=== PATIENT | male | born 1950 | race Caucasian/White ===

== ENCOUNTER 2023-02-07 09:24 | Outpatient (CLI) | payer MEDICARE, OTHER, SELFPAY | END 2023-02-07 09:25 | disposition home or self-care (01) | PROVIDERS: PCP Internal Medicine; Visit Provider Internal Medicine | DX: Z13.6 Encounter for screening for cardiovascular disorders (principal); Z12.5 Encounter for screening for malignant neoplasm of prostate | CPT/HCPCS: 80053; 80061; 84153 ==

== ENCOUNTER 2023-05-23 11:30 | Outpatient (RCR) | payer MEDICARE, OTHER, SELFPAY ==
--- NOTE | 2023-03-22 17:49 | PT.OPEX ---
PT [place] [facility] PT [facility] Out[facility] Eval Start: 03/22/23 15:44 Freq: Status: Active Protocol: Document 03/22/23 17:24 LELAND (Rec: 03/22/23 17:46 LELAND [id number]) E-signed By Hamlet Shah PT Physical Therapy Outpatient Evaluation Insurance Information Insurance Name Medicare B,[employer] Medical Diagnosis Back pain Treating Diagnosis Right shoulder pain and stiffness Left knee pain and stiffness/ swelling Bilateral leg and arm pain Referring MD Foster Subjective Subjective Pt. comes to therapy today with complaints of bilateral leg pain, bilateral arm pain, right shoulder pain, left knee pain, and general stiffness and difficulty walking. He has a history of neck and lumbar laminectomy surgeries and right LILI. 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 He has trouble with walking, climbing steps, and reaching/lifting ADL's. His goal of therapy is to improve walking ability, reduce pain, and improve right arm function . Pain Comments 2 Date of Last Physician Visit 02/18/23 Current Work Status Retired Preferred Name Alex Objective Range of Motion Right shoulder: mild/moderate limitations in end range motion due to joint stiffness Left shoulder ROM is WNL right knee ROM is WNL left knee ROM is mildly limited at end range flexion and extension Bilateral active ankle DF is 5 degrees Strength Bilateral quad, gluteal, and right cuff weakness Swelling mild/mod left knee Balance & Gait Pt. ambulates with shortened stride and stiff gait with decreased hip and knee flexion . Posture forward head with increased kyphosis posture Assessment Assessment/Impression Objectively, pt. demonstrates; slowed gait with shortened stride and stiff ambulation pattern with decreased hip and knee flexion; decreased right shoulder end range motion due to joint stiffness; decreased end range left knee motion due to OA changes with mild/ mod swelling/thickness noted; core deconditioning; negative slump and SLR testing; and quad,gluteal and right cuff weakness. His leg pain symptoms appear to be coming from his knees versus his lumbar spine testing. Primary Functional Limitations walking, steps, reaching, lifting Plan of Care Rehabilitation Potential Good Physical Therapy Goals 1. Pt. will be independent with HEP for self maintenance in 8 weeks. 2. Pt. will demonstrate improved mobility and core strength in 8 weeks. 3. Pt. will demonstrate improved gait pattern in 8 weeks. 4. Pt. will be able to lift arm overhead for ADL's without difficulty in 8 weeks. Coordination/Communication With Referral Source Treatment Plan/Direct Interventions Gait Training,Joint Mobilization,Manual Therapy, Self-Care/Home Management, Therapeutic Exercises Frequency/Duration weekly to every other week for 8-12 weeks. Patient Will Be Discharged From Therapy Independent w/HEP, Independently Progressing Evaluation Billing Complexity Moderate Certification Information Initial Certification Date 03/22/23 Ending Certification Date 06/15/23 Provider Signature Shows Agreement With POC & Medical Necessity Physician Signature & Date Requested Please Sign/Date Here Physician Comment/Change : Physician NPI Number #
== END 2023-07-05 14:04 | disposition home or self-care (01) ==
PROVIDERS: PCP Internal Medicine; Visit Provider Internal Medicine
DX: M54.9 Dorsalgia, unspecified (principal); Z51.89 Encounter for other specified aftercare
CPT/HCPCS: 97110; 97140; 97162

== ENCOUNTER 2023-09-15 10:04 | Emergency (ER) | payer MEDICARE, OTHER, SELFPAY ==
[2023-09-15 10:05] VITALS: BP 146/89; PULSE 87; RESP 16; O2SAT 98
[2023-09-15 10:13] VITALS: BP 146/89; PULSE 78; RESP 18; TEMP 36.6; O2SAT 100; BMI 28.9
[2023-09-15 10:30] VITALS: BP 128/79; PULSE 87; RESP 16; O2SAT 98
--- NOTE | 2023-09-15 10:54 | ED.GENADULT ---
HPI - General Adult General Chief complaint: Post Op Complication Stated complaint: Bleeding post knee replacement Time Seen by Provider: 09/15/23 10:28 History of Present Illness HPI narrative: 73-year-old male, postop day 3 status post a left TKA, presenting today with bleeding from the incision that was made for the drain during the procedure. Patient states that he went to change the bandage today and there was blood oozing out from the area so he came in for evaluation. He states he has been doing well rehab has been going well, pain is well controlled. He denies any systemic symptoms. Related Data Home Medications Medication Instructions Recorded Confirmed amoxicillin 500 mg capsule 2,000 mg ONCE 09/15/23 ascorbic acid (vitamin C) 1,000 mg 1 g PO DAILY 09/15/23 09/15/23 capsule aspirin 81 mg capsule 81 mg PO DAILY 09/15/23 09/15/23 celecoxib 100 mg capsule 100 mg PO BID 09/15/23 09/15/23 cholecalciferol (vitamin D3) 50 50 mcg PO DAILY 09/15/23 09/15/23 mcg (2,000 unit) capsule ferrous sulfate 325 mg (65 mg 325 mg PO DAILY 09/15/23 09/15/23 iron) tablet glucosamine 375 re-adodhlgnd-hos tab PO 09/15/23 no1 500 mg-C 15 mg-leonardo 0.5 mg tablet (Zlrronzcqux-Imnrvurepmr-SQO Complex) omega 5-uys-ksk-fish oil 60 mg-90 1 cap PO DAILY 09/15/23 09/15/23 mg-500 mg capsule (Fish Oil) oxycodone 5 mg tablet 5 - 10 mg PO Q4H PRN 09/15/23 09/15/23 sennosides 8.6 mg capsule (senna) 8.6 - 25.8 mg PO BID 09/15/23 09/15/23 vitamin B complex 1 cap PO DAILY 09/15/23 09/15/23 Allergies Allergy/AdvReac Type Severity Reaction Status Date / Time No Known Drug Allergies Allergy Verified 09/15/23 10:13 Review of Systems Status of ROS: Reports: 6 or more systems reviewed and unremarkable except as noted in History and below [facility] Medical History Laceration of index finger (07/10/12) ?S61.218A - Laceration without foreign body of other finger without damage to nail, initial encounter (ICD-10) Abrasion or friction burn of groin with infection Joint pain ?M25.50 - Pain in unspecified joint (ICD-10) Back pain ?M54.9 - Dorsalgia, unspecified (ICD-10) Surgical History History of carpal tunnel surgery of right wrist (2018) ?Z98.890 - Other specified postprocedural states (ICD-10) History of carpal tunnel surgery of left wrist (08/2019) ?Z98.890 - Other specified postprocedural states (ICD-10) Status post hemilaminotomy (05/18/17) ?Z98.890 - Other specified postprocedural states (ICD-10) 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) ?Z96.641 - Presence of right artificial hip joint (ICD-10) History of laminectomy (05/18/16) ?Z98.890 - Other specified postprocedural states (ICD-10) History of colonoscopy with polypectomy ?Z98.890 - Other specified postprocedural states (ICD-10) ?Z86.010 - Personal history of colonic polyps (ICD-10) Family History Father Alcohol dependence Asthma Sister Alcohol dependence Cancer Breast cancer Mother Coronary artery disease Social History Narrative: -Ofelia former pipe What is your current living situation?: I presently have a place to live Problems where you live: no known problems In the past 12 months, utilities in danger of being shut off: no In past 12 months, lack of transportation kept you from medical appts, meetings, work, or getting things needed for daily living: no In the past 12 mos, have been you worried that your food would run out before you had money to buy more?: never true In the past 12 mos, the food you bought just didn't last and you didn't have money to buy more?: never true Smoking Status: Former smoker What tobacco products do you use: pipe Do you use any of these nicotine containing products: None Second hand tobacco smoke exposure: No How often does anyone, including family, friends and others, physically hurt you: never How often does anyone, including family, friends and others, insult or talk down to you: never How often does anyone, including family, friends and others, threaten you with harm: never How often does anyone, including family, friends and others, scream or curse at you: never Little interest or pleasure in doing things: not at all Feeling down, depressed, or hopeless: not at all Exam Narrative: Exam Narrative: Well-nourished well-developed patient in no acute distress. Alert and oriented. Answers questions appropriately. Mood and affect are appropriate. Thoughts are goal oriented and rational. No tangential or magical thinking noted. Patient speaks in full sentences without needing to catch his breath. HEENT: Normocephalic atraumatic. Pupils are equally round reactive to light. Extraocular muscles are intact. Conjunctivae are moist without any icterus noted. Moist mucous membranes. Skin: Well perfused. Extremities: Left lower extremity has swelling and ecchymosis as expected postoperatively. The main incision is bandaged. He has a bandage on the lateral knee, that has been present since surgery, which was removed today the bandages completely soaked and blood dripped out from the gauze when the bandage was removed. He has a tiny incision that is not bleeding. No evidence of infection. Const: Vital Signs, click to edit/add: Vital Signs - 24 hr 09/15/23 10:13 Temperature 97.9 F Pulse Rate [Pulse Oximeter] 78 Respiratory Rate 18 Blood Pressure [Ri ght Upper Arm] 146/89 H Pulse Oximetry 100 Oxygen Delivery Me thod Room Air Course Course ED Course: The area was cleaned with wound cleanser and the small drop of antibiotic ointment was placed over the incision. As pressure dressing with gauze and tape was made placed over the incision. Vital Signs Vital signs: Initial Vital Signs Temperature 97.9 F 09/15/23 10:13 Temperature Source Temporal Artery Scan 09/15/23 10:13 Pulse Rate 78 09/15/23 10:13 Respiratory Rate 18 09/15/23 10:13 Blood Pressure 146/89 H 09/15/23 10:13 Blood Pressure Mean 108 H 09/15/23 10:13 Blood Pressure Position Semi-Fowlers 09/15/23 10:13 Pulse Oximetry 100 09/15/23 10:13 Oxygen Delivery Method Room Air 09/15/23 10:13 Vital Signs Temperature 97.9 F 09/15/23 10:13 Pulse Rate 78 09/15/23 10:13 Respiratory Rate 18 09/15/23 10:13 Blood Pressure 146/89 H 09/15/23 10:13 Pulse Oximetry 100 09/15/23 10:13 Oxygen Delivery Method Room Air 09/15/23 10:13 Temperature 97.9 F 09/15/23 10:13 Pulse Rate 78 09/15/23 10:13 Respiratory Rate 18 09/15/23 10:13 Blood Pressure 146/89 H 09/15/23 10:13 Pulse Oximetry 100 09/15/23 10:13 Oxygen Delivery Method Room Air 09/15/23 10:13 Medical Decision Making MDM Narrative Medical decision making narrative: Postop bleeding from a small lateral incision of the knee. I think most of the blood was likely from several days ago that remain in the bandage that dripped out, the incision itself was not actively bleeding today. We discussed wound hygiene and follow up as instructed. Of note, patient was instructed to follow up with primary care, would like to skip that appointment since they were seen today. I think that is acceptable. Discharge Plan Discharge Clinical Impression: Postoperative bleeding from incision Patient Disposition: Home, Self-Care Condition: Stable Additional Instructions: Follow-up as directed. Okay to skip the 1st primary care follow-up as you were seen today. Prescriptions: No Action amoxicillin 500 mg capsule 2,000 mg ONCE Rx Instructions: 1 HR PRIOR TO APPT ascorbic acid (vitamin C) 1,000 mg capsule 1 g PO DAILY vitamin B complex Capsule 1 cap PO DAILY ferrous sulfate 325 mg (65 mg iron) tablet 325 mg PO DAILY aspirin 81 mg capsule 81 mg PO DAILY celecoxib 100 mg capsule 100 mg PO BID oxycodone 5 mg tablet 5 - 10 mg PO Q4H PRN senna 8.6 mg capsule 8.6 - 25.8 mg PO BID cholecalciferol (vitamin D3) 50 mcg (2,000 unit) capsule 50 mcg PO DAILY omega 5-dxd-brq-fish oil [Fish Oil] 60-90-500 mg capsule 1 cap PO DAILY Idmtrcufyun-Dddua-TQI Complex 201-390-45-0.5 mg tablet PO Follow Up/Referrals: John Foster MD [Primary Care Provider] - Stand Alone Forms: [employer] Info Instructions
[2023-09-15 11:00] VITALS: BP 129/86; PULSE 77; RESP 16; O2SAT 98
--- OUTSIDE RECORDS SUMMARY | 2023-09-15 11:04 | XMS_ITS | Continuity of Care Document ---
Author Name Unknown Organization [facility] Address [address] [place] [address] Phone Care Team Providers Care Balance Wheel Arm Burnisher Name Role Phone Trevor Odonnell MD Unavailable Unavailable Allergies, Adverse Reactions, Alerts Substance Reaction Status Criticality No Known Allergies Active No Inform ation Procedures Procedure Date Office/Outpatient Visit,Est, Mod 2015 Office/Outpatient Visit,New, Mod 2015 X-Ray Exam Of Neck Spine, 4+ Views Advance Directives Directive Yes / No Effective Date File Name No Information Encounters Encounter Description Practice Location Reason(s) For Visit Diagnoses Date Provider Providers Copied on Encounter [facility], [address], [place], [place], [id number], [place] tel:[phone] [facility] - [facility] No Information Blas Murray. [facility], [address] [place] [address] [address], [place], [place], [id number], [place]. tel:[phone] Office/Outpat ient Visit,Est, Mod [facility], [address], [place], [place], [id number], [place] tel:[phone] [facility] - [facility] Spinal stenosis, cervical region Blas Murray. [facility], [address], [place], [place], [id number], [place]. tel:[phone] Referring Provider: John Foster, [facility] [address], [address]. tel:[phone] Office/Outpat ient Visit,New, Mod [facility], [address], [place], [id number], [place] tel:[phone] [facility] Other spondylosis with myelopathy, cervical regionSpondylo listhesis, cervical regionSpinal stenosis, cervical region Hung Kooence. [facility], [address] [place] [address], [address], [place], [id number], [place]. tel:[phone] Referring Provider: John Foster, [facility] [address] [place] [address], [address]. tel:[phone] Family History Family Member Type Diagnosis Age At Onset No Information Payers Payer name Insurance type Covered libertarian ID Authoriza tialexander(s) [employer] Kerry [id number] Social History Type Description Quantity Date Captured Comments Alcohol Use Details Unknown Caffeine Use Details Unknown Tobacco Use Status Smoking Status No Information Sex Male Chief Complaint And Reason For Visit No Information Reason For Referral Reason For Referral No Information Plan Of Treatment Date Type Action Status Future Order: Radiology Order Ce rvical 4 Or 5 Views (CMIN4), Ordered on: Ordered History Of Present Illness Encounter Date Complaint History Of Prese nt Illness No Information Functional Status Date Functional Assessmen t No Information Instructions Date Instruction Additional Infor mation Weight Management Education Rela james to Overweight Weight management: I nstructed to return to General Practitioner timeframe: 1 Month. Related to Overweight Assessments Type Assessment Date No Information Patient Care Teams Name Effective Dates (start - stop) Status Members No Information
--- OUTSIDE RECORDS SUMMARY | 2023-09-15 11:04 | XMS_ITS | Clinical Summary ---
Author Name Unknown Organization [facility] Address [address] [place] [address] Care Team Providers Care Laboratory Apparatus Glass Blower Name Role Phone John Foster MD Primary Care Provider [phone] Source Comments You are receiving this document as you are listed as the primary care provider,follow-up provider, or the patient has been referred to you for consultation.This is in compliance with the Medicare and[facility] EHR Incentive Program,which states Providers who transition their patient to another setting of careor provider of care or refers their patient to another provider of care shouldprovide summary care record for each transition of care or referral. [facility] Allergies No known active allergies Medications Medication Sig Dispensed Refills Start Date End Date Status Multiple Vitamins-Iron (MULTIVITAMIN/IRON OR) 0 Ac tive Immunizations Name Administration Dates Next Due OPV, Trivalent (Orimune or tOPV) 12/08/1987 Td 10/25/1997 Tdap 01/20/2021 Social History Tobacco Use Types Packs/Day Years Used Date Smoking Tobacco: Never Assessed Sex and Gender Information Value Date Recorded Sex Assigned at Not on file Gender Identity Not on file Sexual Orientation Not on file Last Filed Vital Signs Vital Sign Reading Time Taken Comments Blood Pressure 137/84 01/20/2021 2:31 PM CDT Pulse 70 01/20/2021 2:32 PM CDT Temperature 36.8 ??C (98.3 ??F) 01/20/2021 12:41 PM C DT Respiratory Rate 18 01/20/2021 12:41 PM CDT Oxygen Saturation 100% 01/20/2021 2:32 PM CDT Inhaled Oxygen Concentration - - Weight 90.7 kg (200 lb) 01/20/2021 12:41 PM CDT Height 172.7 cm (5' 8) 01/20/2021 12:41 PM CDT Body Mass Index 30.41 01/20/2021 12:41 PM CDT Plan of Treatment Health Maintenance Due Date Last Done Comments Colon Cancer Screening Plan Due 1950 Hep C Screening (Preventive Services) 1950 Medicare Annual Wellness Visit 1950 COVID-19 Vaccine (#1) 01/15/1949 Zoster/Shingles (1 of 2) 1998 Pneumococcal 65+ Yrs (1 - PCV) 2013 Influenza (#1) 2023 DTaP/Tdap/Td (2 - Tdap) 01/20/2031 01/21/20, 10/25/1997 IPV (Polio) Aged Out 12/08/1987 No longer eligi ble based on patient's age to complete this topic Cholesterol Discontinued 09/20/2001, 08/25/2000, 10/25/1997 HepA Aged Out No longer eligi ble based on patient's age to complete this topic HepB Aged Out No longer eligi ble based on patient's age to complete this topic Hib Aged Out No longer eligi ble based on patient's age to complete this topic MCV4 Aged Out No longer eligi ble based on patient's age to complete this topic Care Teams Laboratory Apparatus Glass Blower Relationship Specialty Start Date End Date John Foster MD [address] [place] [address] PCP - General 10/28/21
--- OUTSIDE RECORDS SUMMARY | 2023-09-15 11:04 | XMS_ITS | Clinical Summary ---
Author Name Unknown Organization [employer] [facility] Address [place], [place] [address] Care Team Providers Care Manager Product Design Name Role Phone John Foster MD Primary Care Provider [facility] [place] Unavailable [phone] Allergies No known active allergies Medications Medication Sig Dispensed Refills Start Date End Date Status MULTIVITS,THERAP IRON,HEMATIN (B COMPLEX VITAMINS PLUS ORAL) Take 1 Tab by mouth once daily. 0 Active vitamin e 400 unit capsule Take 400 Units by mouth once daily. 0 Active ascorbic acid, vitamin C, (VITAMIN C) 1,000 mg tablet Take 1,000 mg by mouth once daily. 0 Active amoxicillin (AMOXIL) 500 mg capsule Take 2,000 mg by mouth one time if needed for Other (Specify) (prior to dental procedures). 0 Active cholecalciferol, Vitamin D3, (VITAMIN D-3) 2,000 unit tablet Take 2,000 Units by mouth once daily. 0 Active tetrahydrozoline (VISINE) 0.05 % ophthalmic solution Place 1 Drop into both eyes 4 times daily if needed for Other (Specify) (irritation). 0 Active docosahexaenoic acid/epa (FISH OIL ORAL) Take 1 Capsule by mouth once daily. 0 Active glucos sul 2KCl/msm/chond/C/M n (GLUCOSAMINE CHONDROITIN ORAL) Take 1 Tablet by mouth once daily. 0 Active Multivitamin Cmb No.21-Iron-FA 18-400 mg-mcg tab Take 1 Tablet by mouth once daily. 0 Active ferrous sulfate, 65 mg elemental, tablet Take 325 mg by mouth once daily with a meal. 0 Active WalkerIndications: Status post left knee replacement Walker with front wheels for home use. 1 Each 0 4 Active acetaminophen (TYLENOL EXTRA STRGTH) 500 mg tabletIndications: Status post left knee replacement Take 2 Tablets (1,000 mg) by mouth every 6 hours. Max acetaminophen dose: 4000mg in 24 hrs. 100 Tablet 0 4 Active aspirin (ECOTRIN) 81 mg enteric coated tabletIndications: Status post left knee replacement Take 1 Tablet (81 mg) by mouth two times daily with meals. 85 Tablet 0 4 Active sennosides-docusat e (SENOKOT S) (8.6-50 mg) tabletIndications: Status post left knee replacement Take 1-3 Tablets by mouth two times daily. 100 Tablet 0 4 Active oxyCODONE (ROXICODONE) 5 mg immediate release tabletIndications: Status post left knee replacement Take 1-2 Tablets (5-10 mg) by mouth every 4 hours if needed for Pain (For moderate pain. Hold dose if sedated.). 25 Tablet 0 4 Active celecoxib (CeleBREX) 100 mg capsuleIndications :Status post left knee replacement Take 1 Capsule (100 mg) by mouth two times daily with meals. 60 Capsule 0 4 Active multivitamin capsule Take 1 capsule by mouth once daily. 0 024 Discontinued( Pharmacist change per medication history (E-cancel not sent)) acetaminophen (TYLENOL EXTRA STRGTH) 500 mg tablet Take 500-1,000 mg by mouth every 6 hours if needed. Max acetaminophen dose: 4000mg in 24 hrs. 0 024 Discontinued( *IP Discontinued) ibuprofen (ADVIL; MOTRIN) 200 mg tablet Take 400-600 mg by mouth 4 times daily if needed. 0 024 Discontinued( *IP Discontinued) durable medical equipment (DME)Indications:P rimary osteoarthritis of both knees Ice Machine 1 Each 0 4 024 Discontinued( Pharmacist change per medication history (E-cancel not sent)) Active Problems Problem Noted Date Diagnosed Date Primary osteoarthritis of left knee 09/12/2023 RBBB 06/08/2017 Hip pain 06/07/2017 Cervical myelopathy 01/05/2017 Lumbar radicular pain s/p back surgery 7 Spondylolisthesis of lumbar region 01/05/2017 Obstructive sleep apnea syndrome 07/10/2012 Alcohol dependence, in remission , quit 2013 11/2008 Carpal tunnel syndrome Resolved Problems Problem Noted Date Diagnosed Date Resolved Date Unspecified adjustment reaction 09/11/2008 06/07/2017 Encounters Date Type Department Care Team Description 09/15/2023 Nurse Triage [facility] [place] [address] [place] [phone] James Suárez MD Post Procedure 09/14/2023 Telephone [facility] [place] [address] [place] [phone] Obdulia Tejada PA Home Care 09/14/2023 Medical Messaging [facility] [place] [address] [place] [phone] Obdulia Tejada PA Scheduling In-Home PT 09/12/2023 7:56 AM MARKETING AMBASSADOR Anesthesia Event [facility] [address] [place] [address] Tommy Terry MD 09/12/2023 7:15 AM MARKETING AMBASSADOR - 09/12/2023 10:09 AM MARKETING AMBASSADOR Surgery [facility] [address] [place] [address] James Suárez MD LEFT TOTAL KNEE ARTHROPLASTY 09/12/2023 5:39 AM MARKETING AMBASSADOR - 09/13/2023 11:25 AM MARKETING AMBASSADOR Hospital Encounter [facility] [address] [place] [address] James Suárez MD Status post left knee replacement (Primary Dx) Discharge Disposition: Home Health 09/12/2023 Travel 09/09/2023 Travel 09/08/2023 Telephone [facility] [place] [address] [place] [phone] James Suárez MD Surgery Scheduled (09/12/2023 - Left TKA) 09/08/2023 Telephone [facility] [address] [place] [phone] Lala Martines NP Follow Up (Phone number for clinic); labs follow up 08/29/2023 Telephone [facility] [address] [place] [phone] Lala Martines NP Preoperative Exam 08/18/2023 2:45 PM MARKETING AMBASSADOR Office Visit [facility] [address] [place] [phone] James Suárez MD Knee Pain/problem (Primary osteoarthritis of both knees/) 08/18/2023 Travel 08/18/2023 Orders Only [facility] [address] [place] [phone] James Suárez MD <No scans attached> 08/10/2023 Telephone [facility] [address] [place] [phone] James Suárez MD Surgery Scheduled 08/05/2023 11:15 AM MARKETING AMBASSADOR Ancillary Procedure [facility] [address] [place] [phone] 08/05/2023 11:00 AM MARKETING AMBASSADOR Office Visit [facility] [address] [facility] [address] [place] [phone] Obdulia Tejada PA Knee Pain/problem (L knee pain/) 08/05/2023 Travel 06/23/2023 Telephone [facility] [address] [place] [phone] Obdulia Tejada PA Questions (Questions regarding surgery possibility) 06/23/2023 Telephone [facility] [address] [place] [phone] Obdulia Tejada PA Questions (Bilateral Knees) from Last 3 Months Immunizations Name Administration Dates Next Due Influenza, IIV3 (Age >=3 years) 06/21/2007 Oral Polio Vaccine 12/08/1987 Pneumococcal Poly,23-Valent (Pneumovax) 12/12/19 14 Pneumococcal conj 13-Valent (Prevnar 13) 016 Td (Age >=7 Years) 10/25/1997 Td, Preservative Free (age >= 7 Years) 1 Tdap 11/20/2010 Family History Medical History Relation Name Comments Other Father absbestosis Heart Disease Mother valve replacem ent Cancer-breast Sister mets to liver Relation Name Status Comments Father Mother Sister Social History Tobacco Use Types Packs/Day Years Used Date Smoking Tobacco: Former Pipe Smokeless Tobacco: Never Tobacco Cessation:Counseling Given: Yes Comments:smoked pipe in college Alcohol Use Standard Drinks/Week Comments No 0 (1 standard drink = 0.6 oz pur e alcohol) recovered ETOH December 2012 Social Connections Answer Date Recorded Frequency of Communication with Friends and Fami ly Not on file 08/05/2023 Financial Resource Strain Answer Date R ecorded Difficulty of Paying Living Expenses Not on file 08/08/2021 Difficulty of Paying Living Expenses Not on file 08/08/2021 Sex and Gender Information Value Date Recorded Sex Assigned at Not on file Gender Identity Not on file Sexual Orientation Not on file Obstetrics History Last Filed Vital Signs Vital Sign Reading Time Taken Comments Blood Pressure 127/89 09/13/2023 7:54 AM MARKETING AMBASSADOR Pulse 76 09/13/2023 7:54 AM MARKETING AMBASSADOR Temperature 36.7 ??C (98 ??F) 09/13/2023 7:54 AM MARKETING AMBASSADOR Respiratory Rate 18 09/13/2023 7:54 AM MARKETING AMBASSADOR Oxygen Saturation 100% 09/13/2023 7:54 AM MARKETING AMBASSADOR Inhaled Oxygen Concentration - - Weight 88 kg (194 lb) 09/12/2023 6:15 AM MARKETING AMBASSADOR Height 172.7 cm (5' 8) 09/12/2023 6:15 AM MARKETING AMBASSADOR Body Mass Index 29.5 09/12/2023 6:15 AM MARKETING AMBASSADOR Plan of Treatment Upcoming Encounters Date Type Department Care Team (Late st Contact Info) Description 09/15/2023 12:30 PM MARKETING AMBASSADOR Appointment [facility] [address] [place] [phone] Andrew Ling, PT [address] [place] [address] 09/27/2023 1:00 PM MARKETING AMBASSADOR Office Visit [facility] [address] [facility] [address] [place] [phone] Obdulia Tejada PA [address] [place] [address] 11/01/2023 2:00 PM CDT Office Visit [facility] [address] [facility] [address] [place] [phone] James Suárez MD [address] [address] Health Maintenance Due Date Last Done Comments Depression screening for age 12+ 1960 Hepatitis C screening for ag e 18-79 1966 Colonoscopy through age 75 1993 Lipids for age 45-75 1993 Zoster (shingles) series for age 50+ (1 of 2) 1998 Medicare Wellness for age 65+ 2013 BMI (ht and wt on same day) for age 18+ 10/10/2020 10/11/2019, 09/19/2019, 04/25/2019, Additional history exists Tetanus booster 11/20/2020 11/20/2010, 04/0 12/2010, 10/25/1997 COVID-19 vaccine series ( season) 2023 09/28/2020, 08/31/2020 Influenza for age 65+ 04/08/2023 06/21/2007 Tdap Completed 11/20/2010 Pneumococcal series for age 65+ Completed 6, 12/11/2013 Medical Devices Implanted Type Area Corpsman Device Identifier Shelf Expiration Date Model / Serial / Lot Baseplate Tib Lt Sz 6 Ale Ii Titnm Non Pors - [id number] Implanted:Qty: 1 on 09/12/2023 by James Suárez MD at [facility] Ortho Total Joint Left: Knee [employer] 04/14/2033 [id number] / / [id number] Shell Hip Od60mm Trident Psl Cluster Patel - [id number] Implanted:Qty: 1 on 06/08/2017 by James Suárez MD at [facility] Right: Hip [employer] 12/21/2021 [id number]# / / [id number] Liner Hip Id36mm Szg 10deg Trident X3 - [id number] Implanted:Qty: 1 on 06/08/2017 by James Suárez MD at [facility] Right: Hip [employer] 12/19/2021 623-10-36G# / / [id number] Stem Hip Sz6 127deg Accolade Ii - [id number] Implanted:Qty: 1 on 06/08/2017 by James Suárez MD at [facility] Right: Hip [employer] 02/08/2022 [id number]# / / [id number] Head Hip Od36mm +0 Biolox Delta C-Taper Alumina Cer - [id number] Implanted:Qty: 1 on 06/08/2017 by James Suárez MD at [facility] Right: Hip [employer] 03/14/2022 [id number]# / / [id number] Cmnt Bone 40g Simplex P Non Atb Mv - [id number] Implanted:Qty: 2 on 09/12/2023 by James Suárez MD at [facility] Left: Knee [employer] 09/07/2025 [id number] / / [id number] Patella 35x7.5mm Ale Ii Resurf - [id number] Implanted:Qty: 1 on 09/12/2023 by James Suárez MD at [facility] Left: Knee [employer] 05/27/2033 [id number] / / [id number] Fem Lt Sz 6 Legion Cruc Ret Cocr Non Pors - [id number] Implanted:Qty: 1 on 09/12/2023 by James Suárez MD at [facility] Left: Knee [employer] 12/12/2032 [id number] / / [id number] Insert Knee Sz 5-6 12mm Legion [employer]c Ret High Flex Xlpe - [id number] Implanted:Qty: 1 on 09/12/2023 by James Suárez MD at [facility] Left: Knee [employer] 10/02/2032 [id number] / / [id number] Procedures Procedure Name Priority Date/Time Associated Diagnosis Comments XR KNEE 2 VIEWS LEFT PORTABLE SANTIAGO 09/12/2023 11:09 AM MARKETING AMBASSADOR SPINAL BLOCK Routine 09/12/2023 8:55 AM MARKETING AMBASSADOR PERIPHERAL BLOCK Routine 09/12/2023 7:41 AM MARKETING AMBASSADOR ARTHROPLASTY KNEE Elective 09/12/2023 7:36 AM MARKETING AMBASSADOR Primary osteoarthritis of both knees Case Notes SPINAL/ADDUCTOR CANAL SINGLE YOSSI BLOCK WITH EXPARELSUPINE ON REGULAR [facility] CBC W PLT NO DIFF Preop 09/12/2023 7:02 AM MARKETING AMBASSADOR CREATININE Preop 09/12/2023 7:02 AM MARKETING AMBASSADOR BEDSIDE US STUDY ARCHIVE Routine 09/12/2023 6:57 AM MARKETING AMBASSADOR GLUCOSE METER Timed 09/12/2023 6:49 AM MARKETING AMBASSADOR BEDSIDE US STUDY ARCHIVE Routine 09/12/2023 6:11 AM MARKETING AMBASSADOR SCAN-CARDIAC STRIP 09/12/2023 12:00 AM MARKETING AMBASSADOR XR KNEE WB 3 VIEWS BILATERAL AND 1 VIEW BILATERAL Routine 08/05/2023 11:11 AM MARKETING AMBASSADOR Chronic pain of both knees from Last 3 Months Results * XR KNEE 2 VIEWS LEFT PORTABLE (09/12/2023 11:09 AM MARKETING AMBASSADOR) Anatomical Region Laterality Modality KNEE L Digital Radiogra phy 09/12/2023 11:5 5 AM MARKETING AMBASSADOR Narrative 09/12/2023 11:55 AM MARKETING AMBASSADOR For Patients: ??As a result of the s Act, medical imaging exams and procedure reports are released immediately into your electronic medical record. ??You may view this report before your referring provider. ??If you have questions, please contact your health care provider. Indication: Left knee arthroplasty Technique: Left knee 2 view Findings: Hardware from a left knee arthroplasty is in satisfactory position. Bone alignment is normal. No sign of acute fracture. ??There are postoperative changes in the soft tissues. Dictated by Yonny Graham MD @ Sep ??2023 11:55AM (Electronically Signed) ?? Procedure Note Yonny Graham MD - 09/12/2023 For Patients: As a result of the s Act, medical imagingexams and procedure reports are released immediately into your electronicmedical record. You may view this report before your referring provider.If you have questions, please contact your health care provider. Indication: Left knee arthroplasty Technique: Left knee 2 view Findings: Hardware from a left knee arthroplasty is in satisfactory position. Bonealignment is normal. No sign of acute fracture. There are postoperativechanges in the soft tissues. Dictated by Yonny Graham MD @ Sep 12 2023 11:55AM (Electronically Signed) [facility] * [facility] PR10 (09/12/2023 8:55 AM MARKETING AMBASSADOR) Narrative Tommy Terry MD - 09/12/2023 8:55 AM MARKETING AMBASSADOR Tommy Terry MD ? 09/12/2023 ??8:56 AM Spinal Block Patient location during procedure: OR Start time: 09/12/2023 8:01 AM End time: 09/12/2023 8:08 AM Reason for block: at surgeon's request and primary anesthetic Requesting provider: James Suárez MD PreProcedure Checklist Completed: patient identified, risks and benefits discussed, timeout performed, hand hygiene performed, chloraprep used and completely dried prior to procedure, IV checked, site marked, surgical consent and hand hygiene performed Spinal Block Patient position: sitting Prep: chloraprep and sterile drape Patient monitoring: continuous pulse oximetry and blood pressure Approach: midline Location: L3-4 Needle Needle type: pencil-point Needle gauge: 24 G Needle length: 4 in Assessment Events: no complications. Tommy Terry MD ANESTHE DEANNE PX NOTE ORDERABLES * HCHG ANES BLOCK INJ PERIPH (09/12/2023 7:41 AM MARKETING AMBASSADOR) Narrative Tommy Terry MD - 09/12/2023 7:41 AM MARKETING AMBASSADOR Tommy Terry MD ? 09/12/2023 ??7:43 AM Peripheral Block Patient location during procedure: pre-op Start time: 09/12/2023 7:08 AM End time: 09/12/2023 7:14 AM Reason for block: at surgeon's request and post-op pain Requesting provider: James Suárez MD PreProcedure Checklist Completed: patient identified, site marked, risks and benefits discussed, surgical consent, timeout performed and hand hygiene performed. Peripheral Block Patient position: supine Prep: chloraprep Patient monitoring: continuous pulse oximetry, ECG and blood pressure Supplemental O2: yes Neuro Status: mild sedation Block type: adductor canal and lower extremity , regional analgesia techniques Lower extremity block type: adductor canal block of the femoral nerve Laterality: left Injection technique: single injection Injection assessment: incremental Needle Needle type: Stimuplex ?? Needle Details: stimulating Needle gauge: 20 G Needle length: 4 in Unilateral needle Localization (plane blocks): needle and expected nerve location visualized, local anesthetic visualized in anatomic plane and anatomic plane and expected location of nerve appears normal Catheter Catheter used:no Events: no complications. Tommy Terry MD ANESTHE DEANNE PX NOTE ORDERABLES * (ABNORMAL) CBC with Platelets no Differential (09/12/2023 7:02 AM MARKETING AMBASSADOR) Pathologist [facility] WHITE BLOOD COUNT 4.3(L) 4.5 - 11.0 thou/cu mm 09/12/2023 7:25 AM MARKETING AMBASSADOR [facility] RED BLOOD COUNT 4.50 4.30 - 5.90 mil/cu mm 09/12/2023 7:25 AM [facility] HEMOGLOBIN 14.6 13.5 - 17.5 g/dL 09/12/2023 7:25 AM [facility] HEMATOCRIT 42.5 37.0 - 53.0 % 09/12/2023 7:25 AM [facility] MCV 94 80 - 100 fL 09/12/2023 7:25 AM [facility] MCH 32.4 26.0 - 34.0 pg 09/12/2023 7:25 AM [facility] MCHC 34.4 32.0 - 36.0 g/dL 09/12/2023 7:25 AM [facility] RDW 12.1 11.5 - 15.5 % 09/12/2023 7:25 AM [facility] PLATELET COUNT 173 140 - 440 thou/cu mm 09/12/2023 7:25 AM [facility] MPV 10.3 6.5 - 11.0 fL 09/12/2023 7:25 AM [facility] NRBC 0.0 % 09/12/2023 7:25 AM [facility] ABS NRBC 0.0 thou /cu mm 09/12/2023 7:25 AM [facility] Blood BLOOD SPECIMEN / Unknown Butterfly / Unknown 09/12/2023 7:02 AM MARKETING AMBASSADOR 09/12/2023 7:12 AM MARKETING AMBASSADOR Narrative [facility] - 09/12/2023 7:25 AM MARKETING AMBASSADOR If not done within last 30 days. Nurse to release order. Lala Martines NP HEMATOLOGY [facility] [address] [place] [address], * Creatinine (09/12/2023 7:02 AM MARKETING AMBASSADOR) eGFR >90 >90 mL/min/1.7 3m2 09/12/2023 7:40 AM [facility] Comment:As of 2021, eG FR is calculated by the CKD-EPI creatinine equation without race adjustment. ??eGFR can be influenced by muscle mass, exercise, and diet. ??The reported eGFR is an estimation only and is only applicable if the renal function is stable. CREATININE 0.83 0.70 - 1.20 mg/dL 09/12/2023 7:40 AM MARKETING AMBASSADOR [facility] Blood BLOOD SPECIMEN / Unknown Butterfly / Unknown 09/12/2023 7:02 AM MARKETING AMBASSADOR 09/12/2023 7:12 AM MARKETING AMBASSADOR Lala Martines NP CHEMISTRY Performing Organization Address City/[facility]/ZIP Co de Phone Number [facility] [address] [place] [address], * GLUCOSE METER (09/12/2023 6:49 AM MARKETING AMBASSADOR) [facility] Signature GLUCOSE METER 83 65 - 100 mg/dL 09/12/2023 6:55 AM MARKETING AMBASSADOR [facility] Blood BLOOD SPECIMEN / Unknown 09/12/2023 6:49 AM MARKETING AMBASSADOR 09/12/2023 6:55 AM MARKETING AMBASSADOR James Suárez MD CHEMISTRY Performing Organization Address [facility]/ZIP Co de Phone Number [facility] [address] [place] [address], [place] * SCAN-CARDIAC STRIP (09/12/2023 12:00 AM MARKETING AMBASSADOR) Narrative 09/12/2023 12:00 AM MARKETING AMBASSADOR Ordered by an unspecified provider. Other Clinical Staff OTHER * XR KNEE WB 3 VIEWS BILATERAL AND 1 VIEW BILATERAL (08/05/2023 11:11 AM MARKETING AMBASSADOR) Anatomical Region Laterality Modality KNEES Computed Radiogr aphy Impressions 08/06/2023 7:49 AM MARKETING AMBASSADOR Severe osteoarthritis, bilateral knee Obdulia Tejada PA-C 08/05/2023 Narrative 08/06/2023 7:49 AM MARKETING AMBASSADOR This radiology exam was performed at [facility] and interpreted by Obdulia Tejada PA-C HISTORY: A 73 y.o. year - old male with bilateral knee ??pain without history of trauma TECHNIQUE Four views of the bilateral knee were obtained today including: weightbearing bilateral AP, weightbearing bilateral PA Childs, lateral and sunrise views. FINDINGS: ??Severe degenerative changes, bilateral knee(s). ??Severe joint space narrowing mainly affecting the medial compartment, left knee(s). Severe joint space narrowing affecting the lateral compartment, right knee(s). Severe subchondral sclerosis, bilateral knee(s). Severe subchondral cyst formation, bilateral knee(s). Severe osteophyte formation, bilateral knee(s). Moderate patellar tilt of the bilateral knee(s). Patellofemoral compartment with Mtnhxezq-wp-hwjlfl degenerative changes, bilateral knee(s). ??Oruecjmv-ha-vzujkp patellofemoral joint space narrowing, bilateral knee(s). ??Moderate patellofemoral osteophyte formation, bilateral knee(s). No evidence of acute fracture or dislocation. Obdulia [facility] from Last 3 Months Advance Directives Documents on File Type Date Recorded Patient Test Grader Expl anation Healthcare Directive 05/18/2016 12:00 AM 05/14/16 Latest Code Status on File Code Status Date Activated Date Inactivated Comments Full Code 09/12/2023 6:11 AM 09/13/2023 1:25 PM Question Answer Comments Code Status Discussion: Unable to Assess Preferences, Provider to review later Code Status History Code Status Date Activated Date Inactivated Comments Full Code 09/05/2019 9:25 AM 09/06/2019 4:51 PM Full Code 04/10/2019 6:43 AM 04/10/2019 1:24 PM Full Code 06/08/2017 2:39 PM 06/10/2017 1:43 PM Full Code 06/08/2017 9:11 AM 06/08/2017 2:39 PM Care Teams Manager Product Design Relationship Specialty Start Date End Date John Foster MD [address] [place] [address] PCP - General 11/23/12 [facility] [address] [address] 09/13/23
== END 2023-09-15 11:14 | disposition home or self-care (01) ==
LOC: ED 11:03
PROVIDERS: Emergency Provider Family Medicine; PCP Internal Medicine
DX: L76.22 Postprocedural hemorrhage of skin and subcutaneous tissue following other procedure (principal)
CPT/HCPCS: 99282; 99283

== ENCOUNTER 2024-02-02 09:08 | Outpatient (CLI) | payer MEDICARE, OTHER, SELFPAY ==
--- OUTSIDE RECORDS SUMMARY | 2024-02-02 09:10 | XMS_ITS | Clinical Summary ---
[facility] Address [address], [place] [address] Care Team Providers Care Continuous Dryout Operator Helper Name Role Phone John Foster MD Primary Care Provider [phone] Source Comments You are receiving this document as you are listed as the primary care provider,follow-up provider, or the patient has been referred to you for consultation.This is in compliance with the Medicare and[facility] EHR Incentive Program,which states Providers who transition their patient to another setting of careor provider of care or refers their patient to another provider of care shouldprovide summary care record for each transition of care or referral. [facility] Allergies No known active allergies Medications Medication Sig Dispensed Refills Start Date End Date Status Multiple Vitamins-Iron (MULTIVITAMIN/IRON OR) Ac tive Immunizations Name Administration Dates Next [...] Services) 1948 Medicare Annual Wellness Visit 1948 Zoster/Shingles (1 of 2) 1998 Pneumococcal 65+ Yrs (1 - PCV) 2013 COVID-19 Vaccine (1 - season) 2023 Influenza (Season Ended) 2024 DTaP/Tdap/Td (2 - Tdap) 01/20/2031 01/21/20, 10/25/1997 [...] on patient's age to complete this topic Procedures Procedure Name Priority Date/Time Associated Diagnosis Comments LIPID PANEL & DIRECT LDL (IF NEEDED) Routine 09/20/2001 8:54 AM WEIGHT RECORDER from Last 3 Months or Most Recently Relevant to Health Maintenance Results * (ABNORMAL) Lipid Panel and Direct LDL(If Needed) (09/20/2001 8:54 AM WEIGHT RECORDER) Cholesterol/HDL Ratio Screen 4.3 No normal range HP CONVERSION Cholesterol 234(HH) 125 - 199 mg/dL HP CONVERSION HDL Cholesterol 55 40 - 60 mg/dL HP CONVERSION Triglycerides 163 0 - 199 mg/dL HP CONVERSION LDL Calculated 146(HH) 66 - 129 mg/dL HP CONVERSION 09/20/2001 8:54 AM WEIGHT RECORDER Bryn Griffith MD LAB_1 HP CONVERSION from Last 3 Months or Most Recently Relevant to Health Maintenance Care Teams Continuous Dryout Operator Helper Relationship Specialty Start Date End Date John Foster MD [address] [place] [address] PCP - General 10/28/21
--- OUTSIDE RECORDS SUMMARY | 2024-02-02 09:10 | XMS_ITS | Continuity of Care Document ---
Author Organization [facility] Address [address] [place] [address] Phone Care Team Providers Care Tax Auditor Name Role Phone Trevor Odonnell MD Unavailable [...] on Encounter [facility], [address], [place], [place], [id number], [place] tel:[phone] [facility] [place] No Information [facility]. [facility], [address] [place] [address] [address], [place], [place], [id number], [place]. tel:[phone] Office/Outpat ient Visit,Est, Mod [facility], [address], [place], [place], [id number], [place] tel:[phone] [facility] - [facility] Spinal stenosis, cervical region Blas Murray. [facility], [address], [place], [place], [id number], [place]. tel:[phone] Referring Provider: John Foster, [facility] [address], [address]. tel:[phone] Office/Outpat ient Visit,New, [facility], [address], [place], [id number], [place] tel:[phone] [facility] [place] Other spondylosis with myelopathy, cervical regionSpondylo listhesis, cervical regionSpinal stenosis, cervical region Hung Kooence. [facility], [address] [place] [address], [address], [place], [id number], [place]. tel:[phone] Referring Provider: John Foster, [facility] [address] [place] [address], [address]. tel:[phone] Family History Family Member Type Diagnosis Age At Onset No Information Payers Payer name Insurance type Covered democrat ID Authoriza tialexander(s) [employer] Alljude [id number] Social History Type Description Quantity Date Captured [...]
--- OUTSIDE RECORDS SUMMARY | 2024-02-02 09:11 | XMS_ITS | Clinical Summary ---
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 Active vitamin e 400 unit capsule Take 400 Units by mouth once daily. Active amoxicillin (AMOXIL) 500 mg capsule Take 2,000 mg by mouth one time if needed for Other (Specify) (prior to dental procedures). Active cholecalciferol, Vitamin D3, (VITAMIN D-3) 2,000 unit tablet Take 2,000 Units by mouth once daily. Active tetrahydrozoline (VISINE) 0.05 % ophthalmic solution Place 1 Drop into both eyes 4 times daily if needed for Other (Specify) (irritation). Active docosahexaenoic acid/epa (FISH OIL ORAL) Take 1 Capsule by mouth once daily. Active glucos sul 2KCl/msm/chond/C/M n (GLUCOSAMINE CHONDROITIN ORAL) Take 1 Tablet by mouth once daily. Active Multivitamin Cmb No.21-Iron-FA 18-400 mg-mcg tab Take 1 Tablet by mouth once daily. Active ferrous sulfate, 65 mg elemental, tablet Take 325 mg by mouth once daily with a meal. Active acetaminophen (TYLENOL EXTRA STRGTH) 500 mg tabletIndications: Status post left knee replacement Take 2 Tablets (1,000 mg) by mouth every 6 hours. Max acetaminophen dose: 4000mg in 24 hrs. 100 Tablet 09/12/2023 Active CaneIndications:St atus post total knee replacement, left Single Point Cane for home use. For 6 weeks. 1 Each 09/27/2023 Active amoxicillin (AMOXIL) 500 mg capsuleIndications :Status post total knee replacement, left Take 4 capsules 1 hour prior to any dental procedure, including routine cleaning. 12 Capsule 3 11/01/2023 Active Active Problems Problem Noted Date Diagnosed Date Primary osteoarthritis of left knee 09/12/2023 RBBB 06/08/2017 Hip pain 06/07/2017 Cervical myelopathy 01/05/2017 Lumbar radicular pain s/p back surgery 7 Spondylolisthesis of lumbar region 01/05/2017 Obstructive sleep apnea syndrome 07/10/2012 Alcohol dependence, in remission , quit 11/2008 Carpal tunnel syndrome Resolved Problems Problem Noted Date Diagnosed Date Resolved Date Unspecified adjustment reaction 09/11/2008 06/07/2017 Encounters Date Type Department Care Team Description 12/14/2023 Telephone [facility] [address] [facility] [address] [place] [phone] Jonathan Heard PA Injection (Medication) (RIGHT SHOULDER ) 12/09/2023 10:05 AM CDT Ancillary Procedure [address] [address] 12/09/2023 10:00 AM CDT Office Visit [address] [phone] Jonathan Heard PA Shoulder Pain/problem (Chronic right shoulder pain ) 12/09/2023 Travel 12/07/2023 Travel 11/02/2023 Telephone [facility] [address] [facility] [address] [place] [phone] Vinnie Marsh Appointment from Last 3 Months Immunizations Name Administration [...] Sign Reading Time Taken Comments Blood Pressure 116/78 10/06/2023 3:07 PM SHIP WASHER Pulse 89 10/06/2023 3:07 PM SHIP WASHER Temperature 36.4 ??C (97.6 ??F) 10/06/2023 3:07 PM CS T Respiratory Rate 16 10/06/2023 3:07 PM SHIP WASHER Oxygen Saturation 96% 10/06/2023 3:07 PM SHIP WASHER Inhaled Oxygen Concentration - - Weight 88.5 kg (195 lb) 09/15/2023 1:45 PM SHIP WASHER Height 172.7 cm (5' 8) 09/15/2023 1:45 PM SHIP WASHER Body Mass Index 29.65 09/15/2023 1:45 PM SHIP WASHER Plan of Treatment Upcoming Encounters Date Type Department Care Team (Late st Contact Info) Description 02/03/2024 11:15 AM CDT Office Visit [facility] [address] [place] [address] [place] [phone] Cr Moya MD [address] [place] [address] [place] [address] 03/13/2024 1:30 PM CDT Office Visit [facility] [address] [place] [address] [place] [phone] James Suárez MD [address] [place] [address] [place] [address] Health Maintenance Due Date Last Done Comments [...] Additional history exists Tetanus booster 11/20/2020 11/20/2010, 12/2010, 10/25/1997 COVID-19 vaccine series ( season) 2023 09/28/2020, 08/31/2020 Influenza for age 65+ 04/08/2024 06/21/2007 Tdap Completed 11/20/2010 Pneumococcal series for age 65+ Completed 6, 12/11/2013 Medical Devices Implanted Type Area Yard Demurrage Clerk Device Identifier Shelf Expiration Date Model / Serial / Lot Baseplate Tib Lt Sz 6 Ale Ii Titnm Non Pors - [id number] Implanted:Qty: 1 on 09/12/2023 by James Suárez MD at Ortho Total Joint Left: Knee [employer] 04/14/2033 [id number] / / [id number] Shell Hip Od60mm Trident Psl Cluster Patel - [id number] Implanted:Qty: 1 on 06/08/2017 by James Suárez MD at Right: Hip [employer] 12/21/2021 [id number]# / / [id number] Liner Hip Id36mm Szg 10deg Trident X3 - [id number] Implanted:Qty: 1 on 06/08/2017 by James Suárez MD at Right: Hip [employer] [facility] 12/19/2021 [id number]# / / [id number] Stem Hip Sz6 127deg Accolade Ii - [id number] Implanted:Qty: 1 on 06/08/2017 by James Suárez MD at Right: Hip [employer] 02/08/2022 [id number]# / / [id number] Head Hip Od36mm +0 Biolox Delta C-Taper Alumina Cer - [id number] Implanted:Qty: 1 on 06/08/2017 by James Suárez MD at Right: Hip [facility] 03/14/2022 [id number]# / / [id number] Cmnt Bone 40g Simplex P Non Atb Mv - [id number] Implanted:Qty: 2 on 09/12/2023 by James Suárez MD at Left: Knee [facility] 09/07/2025 [id number] / / [id number] Patella 35x7.5mm Ale Ii Resurf - [id number] Implanted:Qty: 1 on 09/12/2023 by James Suárez MD at Left: Knee [employer] 05/27/2033 [id number] / / [id number] Fem Lt Sz 6 Legion Cruc Ret Cocr Non Pors - [id number] Implanted:Qty: 1 on 09/12/2023 by James Suárez MD at Left: Knee [employer] 12/12/2032 [id number] / / [id number] Insert Knee Sz 5-6 12mm Legion Cruc Ret High Flex Xlpe - [id number] Implanted:Qty: 1 on 09/12/2023 by James Suárez MD at Left: Knee [employer] 10/02/2032 [id number] / / [id number] Procedures Procedure Name Priority Date/Time Associated Diagnosis Comments XR SHOULDER 3 VIEWS IMPINGEMENT RIGHT Routine 12/09/2023 10:09 AM CDT Right shoulder pain, unspecified chronicity from Last 3 Months Results * XR SHOULDER 3 VIEWS IMPINGEMENT RIGHT (12/09/2023 10:09 AM CDT) Anatomical Region Laterality Modality SHOULDER R Computed Radiogr aphy Impressions 12/09/2023 2:04 PM CDT Right shoulder osteoarthritis. All services were personally performed by Jonathan Heard PA-C. ??Documentation performed by Gnio Francis, ATC, LAT based on my observation of services performed and provider statements to me. ALEKSEY Humphrey, ELIU, DFAAPA 12/09/2023 Narrative 12/09/2023 2:04 PM CDT This radiology exam was performed at the [place] location in the [facility] Radiology Department and interpreted by Jonathan Heard PA-C HISTORY: A 73 y.o. male with right shoulder pain without history of trauma. TECHNICAL: Three view(s) were obtained of the right shoulder consisting of Grashey, Outlet and Axillary. FINDINGS: Advanced glenohumeral joint osteoarthritis with global osteophyte formation, posterior glenoid wear with 10-15 degrees retroversion. Subchondral interosseous cystic change in the humeral head. AC degenerative joint disease with inferior hypertrophy. Type 2-3 acromion. Jonathan [facility] from Last 3 Months Advance Directives Documents on File Type Date Recorded Patient Warranty Coordinator Expl anation Healthcare Directive 05/18/2016 12:00 AM 05/14/16 * Full Code (Latest Code Status on File) Date Activated Date Inactivated Comments 10/05/2023 1:12 PM * Full Code Date Activated Date Inactivated Comments 09/12/2023 6:11 AM 09/13/2023 1:25 PM Question Answer Comments Code Status Discussion: Unable to Assess Preferences, Provider to review later * Full Code Date Activated Date Inactivated Comments 09/05/2019 9:25 AM 09/06/2019 4:51 PM * Full Code Date Activated Date Inactivated Comments 04/10/2019 6:43 AM 04/10/2019 1:24 PM * Full Code Date Activated Date Inactivated Comments 06/08/2017 2:39 PM 06/10/2017 1:43 PM Care Teams Bakery Machine Mechanic Relationship Specialty Start Date End Date John Foster MD [address] [place] [address] PCP - General 11/23/12
--- NOTE | 2024-02-02 10:10 | W.ANESCHARGE ---
Anesthesia Charges Start Date/Time Anesthesia Start Date: 02/02/24 Anesthesia Start Time: 09:49 Stop Date/Time Anesthesia Stop Date: 02/02/24 Anesthesia Stop Time: 10:17 Summary Extremes of Age - Over 70 or under 1: MDA
--- NOTE | 2024-02-02 10:19 | W.ANESCHARGE ---
Anesthesia Charges Start Date/Time Anesthesia Start Date: 02/02/24 Anesthesia Start Time: 09:49 Stop Date/Time Anesthesia Stop Date: 02/02/24 Anesthesia Stop Time: 10:17 Summary Extremes of Age - Over 70 or under 1: NEUROPSYCHIATRIC AIDE
== END 2024-02-02 09:09 | disposition home or self-care (01) ==
PROVIDERS: PCP Internal Medicine; Visit Provider Internal Medicine
DX: Z12.11 Encounter for screening for malignant neoplasm of colon (principal); K63.5 Polyp of colon; K57.30 Diverticulosis of large intestine without perforation or abscess without bleeding; Z86.010 Personal history of colon polyps
CPT/HCPCS: 00811; 45380; 88304; 88305; 99100; J2704

== ENCOUNTER 2024-02-07 14:30 | Outpatient (RCR) | payer MEDICARE, OTHER, SELFPAY | END 2024-04-24 14:10 | disposition home or self-care (01) | PROVIDERS: PCP Internal Medicine; Visit Provider Physician Assistant Medical | DX: Z96.652 Presence of left artificial knee joint (principal); Z51.89 Encounter for other specified aftercare | CPT/HCPCS: 97110; 97140; 97161 ==

== ENCOUNTER 2024-12-26 14:20 | Outpatient (CLI) | payer MEDICARE, OTHER, SELFPAY ==
--- NOTE | 2024-12-26 14:30 | CRLHL7_ITS ---
For Patients: As a result of the Century Cures Act, medical imaging exams and procedure reports are released immediately into your electronic medical record. You may view this report before your referring provider. If you have questions, please contact your health care provider. Indication: Radiculopathy. Technique: Multiplanar, multisequence MRI of the lumbar spine was performed without intravenous contrast. Comparison: MRI lumbar spine 02/06/2019. Findings: There are 5 lumbar type vertebral segments identified. The vertebral body heights are maintained without evidence of fracture. There is no discrete T1 hypointense marrow infiltrating process. The conus medullaris terminates at L1-2, normal. Cauda equina appears unremarkable. T12-L1: No spinal canal or neural foraminal stenosis. L1-2: Disc degeneration. Disc bulge and facet arthropathy results in mild spinal canal narrowing. Mild left neural foraminal narrowing. Stable. L2-3: Disc degeneration. Disc bulge combined of facet arthropathy results in mild spinal canal narrowing. Moderate right and mild to moderate left neural foraminal narrowing. Mild facet arthropathy. Stable. L3-4: Trace degenerative retrolisthesis. Disc bulge combined with facet arthropathy results in mild spinal canal narrowing. Mild to moderate neural foraminal narrowing. Moderate facet arthropathy. Stable. L4-5: Remote right hemilaminectomy. Grade 2 anterolisthesis combined with facet arthropathy resulting in severe spinal canal narrowing. Moderate to severe neural foraminal stenosis. Severe facet arthropathy. Progressed. L5-S1: No spinal canal narrowing. Mild neural foraminal narrowing. Mild facet arthropathy. Stable. Mild sacroiliac joint osteoarthritis. Impression: 1. At L4-5, remote right hemilaminectomy. Progressed grade 2 anterolisthesis with resultant severe spinal canal and moderate to severe neural foraminal stenosis. 2. Stable mild to moderate spondylosis at the remaining lumbar levels. Dictated by Mikel Lyon MD @ 12/27/2024 11:05:15 AM (Electronically Signed)
== END 2024-12-26 14:21 | disposition home or self-care (01) ==
LOC: MRI 14:24
PROVIDERS: PCP Internal Medicine; Visit Provider Internal Medicine
DX: M54.16 Radiculopathy, lumbar region (principal); M48.061 Spinal stenosis, lumbar region without neurogenic claudication; M47.896 Other spondylosis, lumbar region
CPT/HCPCS: 72148

== ENCOUNTER 2025-01-16 07:05 | Outpatient (CLI) | payer MEDICARE, OTHER, SELFPAY ==
--- NOTE | 2025-01-16 07:15 | CRLHL7_ITS ---
For Patients: As a result of the Century Cures Act, medical imaging exams and procedure reports are released immediately into your electronic medical record. You may view this report before your referring provider. If you have questions, please contact your health care provider. INDICATION : Cervical myelopathy. TECHNIQUE : Cervical spine MRI without contrast. COMPARISON: COMPARISONCervical spine MRI from 02/06/2019. FINDINGS: Mild cervical kyphosis. No recent compression fracture or marrow replacing process. Posterior fossa structures are normal. There is myelomalacia within the cord at C4-5 bilaterally and C5-6 bilaterally. There is atrophy of the cord at the C5-6 level. No extraspinal soft tissue abnormalities. Discs/Endplates: Advanced disc height loss disc desiccation C5-6 and C6-7. Bulky anterior paravertebral osteophyte at the C5-6 level. Findings at individual levels as follows: Craniocervical junction: There is a small suboccipital degenerative effusion. Mild degenerative bone marrow edema involving the bilateral condylar articulations. C2-C3: Shallow disc osteophyte complex. Fusion along the facets. Minimal uncovertebral arthrosis. Minimal right and no significant left neural foraminal stenosis. C3-C4: Postop changes of bilateral laminectomies. The spinal canal is decompressed dorsally. Bilateral uncovertebral and facet arthrosis with moderately advanced left and advanced right neural foraminal stenosis. Compression of the exiting C4 nerve roots. C4-C5: Postop changes of bilateral laminectomies. The spinal canal is decompressed dorsally although there is still mild spinal canal stenosis. 3 millimeters anterolisthesis. Shallow disc osteophyte complex. Bilateral high-grade uncovertebral and facet arthrosis. Advanced bilateral neural foraminal stenosis with compression of the exiting C5 nerve roots. C5-C6: Postop changes of bilateral laminectomies. The spinal canal is decompressed dorsally. Trace anterolisthesis. Shallow disc osteophyte complex flattens the thecal sac. Bilateral uncovertebral and facet arthrosis with mild right and moderate left neural foraminal stenosis. C6-C7: Shallow disc osteophyte complex without spinal canal stenosis. Bilateral uncovertebral arthrosis with mild left and [id number]-rr-[id number] right neural foraminal stenosis. C7-T1: No spinal canal or neural foraminal stenosis. T1-2: No spinal canal or neural foraminal stenosis. IMPRESSION: 1. No acute fracture or marrow replacing process. 2. 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 Stable since prior exam and most compatible with sequela of prior spondylotic compression. Stable material laminectomies at C3 through C6. No high-grade spinal canal stenosis or extrinsic cord deformity at any imaged level. Stable since prior exam. 3. High-grade neural foraminal stenosis at C3-4 bilaterally as well as C4-5 bilaterally with compression of exiting nerve roots at these levels. Stable. 4. Mild degenerative edema involving the bilateral condylar C1 articulations. Stable. 5. Degenerative lower cervical kyphosis. Dictated by Jaren Jon MD @ 01/17/2025 9:37:45 AM (Electronically Signed)
== END 2025-01-16 07:06 | disposition home or self-care (01) ==
LOC: MRI 07:06
PROVIDERS: PCP Internal Medicine; Visit Provider Neurological Surgery
DX: G95.89 Other specified diseases of spinal cord (principal); M48.02 Spinal stenosis, cervical region; M40.292 Other kyphosis, cervical region; M16.12 Unilateral primary osteoarthritis, left hip
CPT/HCPCS: 20610; 72141; 77002

== ENCOUNTER 2025-01-16 09:06 | Outpatient (CLI) | payer MEDICARE, OTHER, SELFPAY ==
--- NOTE | 2025-01-16 09:15 | CRLHL7_ITS ---
For Patients: As a result of the Century Cures Act, medical imaging exams and procedure reports are released immediately into your electronic medical record. You may view this report before your referring provider. If you have questions, please contact your health care provider. Indication: osteoarthrosis of left hip Comparison: 03.13.24 Procedure : Informed consent was obtained. The site was marked. Time-out was performed. The skin of the left hip was cleansed with ChloraPrep. A sterile drape was placed. 8 cc of 1 percent lidocaine was administered for superficial anesthesia. Subsequently a 22 gauge spinal needle was introduced into the left hip joint under intermittent fluoroscopic guidance. 7 cc of 1 percent lidocaine and 2 cc of 40 milligram per cc Depo-Medrol then placed into the left hip joint. The needle was removed and hemostasis achieved with direct pressure. A dressing was placed. The patient tolerated the procedure well without immediate complication. Total fluoroscopy time 14 seconds. Impression: Successful fluoroscopically guided left hip with 80 milligrams of Depo-Medrol. Dictated by Sal Mccurdy MD @ 01/16/2025 10:52:31 AM (Electronically Signed)
== END 2025-01-16 09:07 | disposition home or self-care (01) ==
LOC: RAD 09:08
PROVIDERS: PCP Internal Medicine; Visit Provider Orthopaedic Surgery Adult Reconstructive Orthopaedic Surgery
DX: M16.12 Unilateral primary osteoarthritis, left hip (principal)
CPT/HCPCS: 20610; 77002; Q9966